=== PATIENT | female | born 1985 | race Caucasian/White ===

== ENCOUNTER 2019-06-30 16:46 | Emergency (ER) | payer OTHER ==
[~2019-06-30] VITALS: Ht 157.5 cm; Wt 53.2 kg
[2019-06-30 16:52] VITALS: Ht 157.5 cm; Wt 53.2 kg
[2019-06-30] MEDS ORDERED: BACLOFEN20 M1 PO (20:23)
[2019-06-30] MEDS ORDERED: VOLTAREN75 MG PO (20:23)
[2019-06-30 21:06] VITALS: BP 130/87
== END 2019-06-30 21:06 | disposition home or self-care (01) ==
LOC: D.ER 16:46
DX: M25.551 Pain in right hip (principal); M79.10 Myalgia, unspecified site; W19.XXXA Unspecified fall, initial encounter; Z72.0 Tobacco use